=== PATIENT | male | born 1950 | race Caucasian/White ===

== ENCOUNTER 2020-04-24 09:38 | Emergency (ER) | payer MEDICARE, OTHER ==
[~2020-04-24] VITALS: Ht 185.4 cm; Wt 75.0 kg
--- NOTE | 2020-04-24 09:54 | ED General ---
General Stated Complaint: SYNCOPE History of Present Illness Date Seen by Provider: Apr 24, 2020 Time Seen by Provider: 09:51 Initial Comments 70-year-old male presents following a syncope event. Patient was up walking around when he "passed out" family reports that yesterday at home. He had a brief syncope. Patient denied any symptoms prior to the episode happening. Patient admits to being in a 50-year plus drinker. Reports that he drank some ice last night he does not remember how much he drank. Patient denies any pain or injury at this time. Patient denies any medical history. He denies any allergies. Patient reports he has not been to a doctor in quite some time. No reports of any recent illness. Allergies and Home Medications Allergies Coded Allergies: No Known Drug Allergies (Unverified , 04/24/20) Patient Home Medication List Home Medication List Reviewed: Yes Review of Systems Review of Systems Constitutional: see HPI; No chills, No fever EENTM: no symptoms reported Respiratory: No cough, No short of breath Cardiovascular: No chest pain, No palpitations Gastrointestinal: No abdominal pain, No constipation, No nausea, No vomiting Genitourinary: no symptoms reported Musculoskeletal: no symptoms reported Skin: no symptoms reported Psychiatric/Neurological: See HPI Hematologic/Lymphatic: No Symptoms Reported Immunological/Allergic: no symptoms reported Physical Exam Vital Signs Vital Signs - First Documented 04/24/20 09:38 Temp 36.5 Pulse 94 Resp 20 B/P (MAP) 158/87 (110) Pulse Ox 97 O2 Delivery Room Air Capillary Refill : Height, Weight, BMI Height: '" Weight: lbs. oz. kg; BMI Method: General Appearance: No Apparent Distress, WD/WN HEENT: PERRL/EOMI Respiratory: Lungs Clear, Normal Breath Sounds Cardiovascular: Regular Rate, Rhythm, No Edema Gastrointestinal: Non Tender, Soft Extremity: Normal Capillary Refill, Normal Inspection, Normal Range of Motion Neurologic/Psychiatric: Alert, Oriented x3, No Motor/Sensory Deficits, Normal Mood/Affect, order puller II-XII Norm as Tested Skin: Normal Color, Warm/Dry Progress/Results/Core Measures Suspected Sepsis SIRS Temperature: Pulse: Respiratory Rate: Laboratory Tests 04/24/20 09:50: White Blood Count 7.8 Blood Pressure / Mean: Laboratory Tests 04/24/20 09:50: Creatinine 0.59L, Platelet Count 272, Total Bilirubin 0.7 Results/Orders Lab Results Laboratory Tests Test 04/24/20 09:50 04/24/20 09:53 Range/Units White Blood Count 7.8 4.3-11.0 10^3/uL Red Blood Count 3.68 L 4.35-5.85 10^6/uL Hemoglobin 12.8 L 13.3-17.7 G/DL Hematocrit 35 L 40-54 % Mean Corpuscular Volume 96 80-99 FL Mean Corpuscular Hemoglobin 35 H 25-34 PG Mean Corpuscular Hemoglobin Concent 36 32-36 G/DL Red Cell Distribution Width 12.3 10.0-14.5 % Platelet Count 272 130-400 10^3/uL Mean Platelet Volume 8.7 7.4-10.4 FL Immature Granulocyte % (Auto) 1 % Neutrophils (%) (Auto) 58 42-75 % Lymphocytes (%) (Auto) 29 12-44 % Monocytes (%) (Auto) 11 0-12 % Eosinophils (%) (Auto) 0 0-10 % Basophils (%) (Auto) 1 0-10 % Neutrophils # (Auto) 4.5 1.8-7.8 X 10^3 Lymphocytes # (Auto) 2.2 1.0-4.0 X 10^3 Monocytes # (Auto) 0.9 0.0-1.0 X 10^3 Eosinophils # (Auto) 0.0 0.0-0.3 10^3/uL Basophils # (Auto) 0.0 0.0-0.1 10^3/uL Immature Granulocyte # (Auto) 0.1 0.0-0.1 10^3/uL Sodium Level 127 L 135-145 MMOL/L Potassium Level 4.1 3.6-5.0 MMOL/L Chloride Level 92 L 98-107 MMOL/L Carbon Dioxide Level 24 21-32 MMOL/L Anion Gap 11 5-14 MMOL/L Blood Urea Nitrogen 4 L 7-18 MG/DL Creatinine 0.59 L 0.60-1.30 MG/DL Estimat Glomerular Filtration Rate > 60 BUN/Creatinine Ratio 7 Glucose Level 114 H 70-105 MG/DL Calcium Level 8.8 8.5-10.1 MG/DL Corrected Calcium 9.0 8.5-10.1 MG/DL Total Bilirubin 0.7 0.1-1.0 MG/DL Aspartate Amino Transf (AST/SGOT) 59 H 5-34 U/L Alanine Aminotransferase (ALT/SGPT) 34 0-55 U/L Alkaline Phosphatase 61 40-136 U/L Troponin I < 0.30 <0.30 NG/ML C-Reactive Protein 0.10 <0.50 MG/DL Total Protein 7.6 6.4-8.2 GM/DL Albumin 3.8 3.2-4.5 GM/DL Serum Alcohol < 10 <10 MG/DL Glucometer 99 70-110 MG/DL My Orders Orders - EVI VALENZUELA DO Chest 1 View Ap/Pa Only (04/24/20 09:46) Ct Head Wo (04/24/20 09:46) Alcohol (04/24/20 09:46) Cbc With Automated Diff (04/24/20 09:46) Comprehensive Metabolic Panel (04/24/20 09:46) Drug Screen Stat (Urine) (04/24/20 09:46) Ua Culture If Indicated (04/24/20 09:46) Accucheck Stat ONCE (04/24/20 09:46) Crp Fs (04/24/20 09:46) Troponin I Fs (04/24/20 09:46) Ekg Tracing (04/24/20 09:46) Ns (Ivpb) (Sodium C... W/Nicardipine Iv (04/24/20 11:15) Vital Signs/I&O 04/24/20 09:38 Temp 36.5 Pulse 94 Resp 20 B/P (MAP) 158/87 (110) Pulse Ox 97 O2 Delivery Room Air Capillary Refill : ECG Initial ECG Impression Date: Apr 24, 2020 Initial ECG Impression Time: 09:48 Initial ECG Rate: 88 Initial ECG Rhythm: Normal Sinus Initial ECG Impression: Normal Initial ECG Comparisson: No Previous ECG Available Comment NSR, HR 88 Diagnostic Imaging Diagonstic Imaging: Xray Plain Films/CT/US/NM/MRI: chest Comments [facility], [place] NAME: DENISE RAND [facility] REC#: [id number] PT STATUS: REG ER : 1950 PHYSICIAN: EVI VALENZUELA DO ADMIT DATE: 04/24/20/ER FS Draft Date of Exam:04/24/20 CHEST 1 VIEW AP/PA ONLY HISTORY: Syncope COMPARISON: None TECHNIQUE: Frontal view of the chest FINDINGS: The lung volumes are large. No focal consolidation is seen. There is no pleural effusion or pneumothorax. Blunting of the costophrenic angles is thought to be due to the flattening of the diaphragm and large lung volume. The cardiac silhouette is normal in size. There is aortic atherosclerosis. Surgical clips are seen in the right neck. IMPRESSION: 1. Large lung volumes with no acute pulmonary abnormality seen. Diagonstic Imaging: CT Plain Films/CT/US/NM/MRI: head Comments [facility], [place] NAME: DENISE RAND [facility] REC#: [id number] PT STATUS: REG ER : 1950 PHYSICIAN: EVI VALENZUELA DO ADMIT DATE: 04/24/20/ER FS Draft Date of Exam:04/24/20 CT HEAD WO PROCEDURE: CT head without contrast. TECHNIQUE: Multiple contiguous axial images were obtained through the brain without the use of intravenous contrast. Auto Exposure Controls were utilized during the CT exam to meet ALARA standards for radiation dose reduction. INDICATION: Syncope. COMPARISON: No prior studies are available for comparison. The ventricles and sulci are prominent consistent with cerebral atrophy. There is a peripherally calcified mass at the level of the [place] on the left side, likely an intracranial aneurysm. This likely arises from the proximal left MCA. This measures 12 mm in size. There is a small area of high density along the posterior aspect of the right sylvian fissure. The possibility of trace hemorrhage on the right cannot be entirely excluded. There are no other areas of hemorrhage intracranially. Cisterns are patent. The visualized paranasal sinuses are clear apart from some mucosal thickening and opacification of right-sided ethmoid air cells. IMPRESSION: 1. There are findings consistent with an aneurysm at the left [place], likely arising from the proximal left MCA. There is a tiny area of high density on the right side along the posterior aspect of the sylvian fissure. Trace hemorrhage at this location cannot be excluded. No other areas of hemorrhage are identified. Dictated on workstation # [id number] Reviewed: Reviewed by Me, Reviewed/Discussed Departure Impression Primary Impression: Aneurysm of [place] Additional Impression: Syncope and collapse Disposition: 02 XFER SHT-TRM HOSP Condition: Critical Transfer Transfer Reason: Exceeds level of care Time Spoke to Accepting Phy: 11:05 Transfer Progress Notes Discussed patient with [facility]. Patient accepted by Dr. Keene neurosurgeon. They would like his blood pressure systolic to be less than 140. We will start him on a nicardipine drip and titrate as needed. Patient to be transferred emergently by EMS Transfer Facility: [facility] Method of Transfer: EMS EVI VALENZUELA DO Apr 24, 2020 09:54
[2020-04-24 09:57] LABS: BASOPHILS % (AUTO) 1 % (0-10); EOSINOPHILS % (AUTO) 0 % (0-10); HEMATOCRIT 35 % (40-54); HEMOGLOBIN 12.8 G/DL (13.3-17.7); LYMPHOCYTES # (AUTO) 2.2 X 10^3 (1.0-4.0); LYMPHOCYTES % (AUTO) 29 % (12-44); MEAN CORPUSCULAR HEMOGLOBIN 35 PG (25-34); MEAN CORPUSCULAR HGB CONC 36 G/DL (32-36); MEAN CORPUSCULAR VOLUME 96 FL (80-99); MEAN PLATELET VOLUME 8.7 FL (7.4-10.4); MONOCYTES # (AUTO) 0.9 X 10^3 (0.0-1.0); MONOCYTES % (AUTO) 11 % (0-12); NEUTROPHILS # (AUTO) 4.5 X 10^3 (1.8-7.8); NEUTROPHILS % (AUTO) 58 % (42-75); PLATELET COUNT 272 10^3/uL (130-400); WHITE BLOOD COUNT 7.8 10^3/uL (4.3-11.0)
[2020-04-24 10:18] LABS: ALANINE AMINOTRANSFERASE 34 U/L (0-55); ALBUMIN 3.8 GM/DL (3.2-4.5); ALKALINE PHOSPHATASE 61 U/L (40-136); BILIRUBIN,TOTAL 0.7 MG/DL (0.1-1.0); BUN/CREATININE RATIO 7; CALCIUM 8.8 MG/DL (8.5-10.1); CARBON DIOXIDE 24 MMOL/L (21-32); CHLORIDE 92 MMOL/L (98-107); CREATININE SERUM 0.59 MG/DL (0.60-1.30); GFR ESTIMATED > 60; GLUCOSE 114 MG/DL (70-105); POTASSIUM 4.1 MMOL/L (3.6-5.0); SODIUM 127 MMOL/L (135-145); TOTAL PROTEIN 7.6 GM/DL (6.4-8.2)
--- NOTE | 2020-04-24 10:26 | Diagnostic Imaging Report ---
HISTORY: Syncope COMPARISON: None TECHNIQUE: Frontal view of the chest FINDINGS: The lung volumes are large. No focal consolidation is seen. There is no pleural effusion or pneumothorax. Blunting of the costophrenic angles is thought to be due to the flattening of the diaphragm and large lung volume. The cardiac silhouette is normal in size. There is aortic atherosclerosis. Surgical clips are seen in the right neck. IMPRESSION: 1. Large lung volumes with no acute pulmonary abnormality seen. Dictated by: Dictated on workstation # [id number]
--- NOTE | 2020-04-24 10:28 | Diagnostic Imaging Report ---
PROCEDURE: CT head without contrast. TECHNIQUE: Multiple contiguous axial images were obtained through the brain without the use of intravenous contrast. Auto Exposure Controls were utilized during the CT exam to meet ALARA standards for radiation dose reduction. INDICATION: Syncope. COMPARISON: No prior studies are available for comparison. The ventricles and sulci are prominent consistent with cerebral atrophy. There is a peripherally calcified mass at the level of the [place] on the left side, likely an intracranial aneurysm. This likely arises from the proximal left MCA. This measures 12 mm in size. There is a small area of high density along the posterior aspect of the right sylvian fissure. The possibility of trace hemorrhage on the right cannot be entirely excluded. There are no other areas of hemorrhage intracranially. Cisterns are patent. The visualized paranasal sinuses are clear apart from some mucosal thickening and opacification of right-sided ethmoid air cells. IMPRESSION: 1. There are findings consistent with an aneurysm at the left [place], likely arising from the proximal left MCA. There is a tiny area of high density on the right side along the posterior aspect of the sylvian fissure. Trace hemorrhage at this location cannot be excluded. No other areas of hemorrhage are identified. Dictated by: Dictated on workstation # [id number]
[2020-04-24] MEDS ORDERED: NS (IVPB) 250 ML ONE (11:07)
[2020-04-24] MEDS ORDERED: niCARdipine IV FOR DRIP 50 MG KIT ONE (11:07)
[2020-04-24] MEDS ORDERED: niCARdipine IV 50 MG in NS (IVPB) 230 ML IV SCH (11:15)
[2020-04-24 11:30] VITALS: BP 148/81
== END 2020-04-24 11:30 | disposition short-term general hospital (02) ==
LOC: ER FS 09:47
DX: I67.1 Cerebral aneurysm, nonruptured (principal); R55 Syncope and collapse; I10 Essential (primary) hypertension
CPT/HCPCS: 70450; 71045; 80053; 82962; 84484; 86141; 99284; G0480; 80320; 93005